=== PATIENT | female | born 1945 | race Caucasian/White ===

== ENCOUNTER 2016-08-24 09:27 | Day surgery (SDC) | payer OTHER ==
[2016-08-24] MEDS ORDERED: FLUMAZENIL 0.5 MG/5 ML MDV IVP ONE (11:08)
[2016-08-24] MEDS ORDERED: MIDAZOLAM 2 MG/2 ML VIAL ONE (11:08)
[2016-08-24] MEDS ORDERED: ONDANSETRON 4 MG/2 ML VIAL ONE (11:09)
[2016-08-24] MEDS ORDERED: HEPARIN 50,000 UNIT/10 ML VIAL ONE (11:49)
[2016-08-24] MEDS ORDERED: fentaNYL 100 MCG/2 ML INJ ONE (11:59)
[2016-08-24] MEDS ORDERED: LIDOCAINE 1% 30 ML SDV ONE (12:05)
[2016-08-24] MEDS ORDERED: IOPAMIDOL (ISOVUE-300) 100 ML BTL IV ONE (12:05)
== END 2016-08-24 13:50 | disposition home or self-care (01) ==
LOC: FIMAGING 09:27
PROVIDERS: ATTEND Internal Medicine Nephrology
PROC: 0JPT33Z Removal of Infusion Device from Trunk Subcutaneous Tissue and Fascia, Percutaneous Approach (ICD-10-PCS; principal; 2016-08-24 12:37)
PROC: 02HV33Z Insertion of Infusion Device into Superior Vena Cava, Percutaneous Approach (ICD-10-PCS; principal; 2016-08-24 12:37)
DX: T82.49XA Other complication of vascular dialysis catheter, initial encounter (principal); T82.868A Thrombosis due to vascular prosthetic devices, implants and grafts, initial encounter; N18.9 Chronic kidney disease, unspecified; Q61.3 Polycystic kidney, unspecified; I12.9 Hypertensive chronic kidney disease with stage 1 through stage 4 chronic kidney disease, or unspecified chronic kidney disease; F17.200 Nicotine dependence, unspecified, uncomplicated; Z99.2 Dependence on renal dialysis
CPT/HCPCS: 36582; 75827; 77001; 99152; C1769; C1894; C1750; J0690; J1644; J2250; J2405; J3010; Q9967

== ENCOUNTER → 2016-09-25 | Outpatient (CLI) | payer OTHER | LOC: FIMAGING 09:43 | PROVIDERS: ATTEND Internal Medicine Nephrology | DX: Z03.89 Encounter for observation for other suspected diseases and conditions ruled out (principal) ==

== ENCOUNTER 2016-09-29 07:38 | Day surgery (SDC) | payer OTHER ==
[2016-09-29] MEDS ORDERED: FLUMAZENIL 0.5 MG/5 ML MDV IVP ONE (08:43)
[2016-09-29] MEDS ORDERED: ONDANSETRON 4 MG/2 ML VIAL ONE (08:43)
[2016-09-29] MEDS ORDERED: fentaNYL 100 MCG/2 ML INJ ONE (08:44)
[2016-09-29] MEDS ORDERED: MIDAZOLAM 2 MG/2 ML VIAL ONE (08:44)
[2016-09-29] MEDS ORDERED: NALOXONE HCL 0.4 MG/ML INJ ONE (08:44)
[2016-09-29] MEDS ORDERED: HEPARIN 50,000 UNIT/10 ML VIAL ONE (09:03)
[2016-09-29] MEDS ORDERED: LIDOCAINE 1% 30 ML SDV ONE (09:03)
== END 2016-09-29 11:54 | disposition home or self-care (01) ==
LOC: FIMAGING 07:38
PROVIDERS: ATTEND Radiology Diagnostic Radiology
PROC: 0WHG33Z Insertion of Infusion Device into Peritoneal Cavity, Percutaneous Approach (ICD-10-PCS; principal; 2016-09-29 10:25)
DX: N18.6 End stage renal disease (principal); I12.0 Hypertensive chronic kidney disease with stage 5 chronic kidney disease or end stage renal disease; F17.210 Nicotine dependence, cigarettes, uncomplicated; Z99.2 Dependence on renal dialysis
CPT/HCPCS: C1750; J1644; J2250; J2310; J2405; J3010

== ENCOUNTER → 2016-10-08 | Day surgery (SDC) | payer OTHER ==
[~2016-10-08] MED LIST: IOPAMIDOL (ISOVUE-300) 100 ML BTL ONE
[2016-10-08 15:54] LABS: % IMMATURE GRANULYOCYTES 0.3 % (0.0-1.1); ABSOLUTE IMMATURE GRANULOCYTES 0.02 10^3/uL (0.00-0.10); ADD DIFF? NO; ADD MORPH? NO; ADD SCAN? NO; ATYPICAL LYMPHOCYTE FLAG 10 (0-99); FRAGMENT RBC FLAG 0 (0-99); HEMATOCRIT 31.8 % (38.0-47.0); HEMOGLOBIN 10.2 g/dL (12.6-16.3); LEFT SHIFT FLG 0 (0-99); LIPEMIA HEMOLYSIS FLAG 80 (0-99); MEAN CELL HEMOGLOBIN 30.2 pg (27.9-34.1); MEAN CELL HEMOGLOBIN CONCENTR. 32.1 g/dL (32.4-36.7); MEAN CELL VOLUME 94.1 fL (81.5-99.8); MEAN PLATELET VOLUME 10.2 fL (8.7-11.7); PLATELET CLUMPS FLAG 0 (0-99); PLATELET COUNT 117 10^3/uL (150-400); RED BLOOD CELL COUNT 3.38 10^6/uL (4.18-5.33); RED CELL DISTRIBUTION WIDTH 13.4 % (11.5-15.2)
[2016-10-08 16:23] LABS: ALANINE AMINOTRANSFERASE 31 IU/L (9-52); ALBUMIN 3.8 g/dL (3.5-5.0); ALKALINE PHOSPHATASE 59 IU/L (38-126); ANION GAP 12 mEq/L (8-16); ASPARTATE AMINOTRANSFERASE 18 IU/L (14-46); BILIRUBIN,TOTAL 0.5 mg/dL (0.1-1.4); CALCIUM 9.3 mg/dL (8.5-10.4); CARBON DIOXIDE 20 mEq/l (22-31); CHLORIDE 104 mEq/L (97-110); CREATININE 5.1 mg/dL (0.6-1.0); GLOMERULAR FILTRATION RATE 8; GLUCOSE 78 mg/dL (70-100); POTASSIUM 4.3 mEq/L (3.5-5.2); SODIUM 136 mEq/L (134-144)
== END | disposition home or self-care (01) ==
LOC: FIMAGING 13:22
PROVIDERS: ATTEND Internal Medicine Nephrology
PROC: 03PYX3Z Removal of Infusion Device from Upper Artery, External Approach (ICD-10-PCS; principal; 2016-10-08)
PROC: B34JZZZ Ultrasonography of Left Upper Extremity Arteries (ICD-10-PCS; principal; 2016-10-08)
PROC: 057C0ZZ Dilation of Left Basilic Vein, Open Approach (ICD-10-PCS; principal; 2016-10-08)
PROC: B544ZZA Ultrasonography of Left Jugular Veins, Guidance (ICD-10-PCS; principal; 2016-10-08)
DX: T82.42XA Displacement of vascular dialysis catheter, initial encounter (principal); N18.5 Chronic kidney disease, stage 5; I12.0 Hypertensive chronic kidney disease with stage 5 chronic kidney disease or end stage renal disease; F17.210 Nicotine dependence, cigarettes, uncomplicated; Q44.6 Cystic disease of liver
CPT/HCPCS: 36815; 36902; 76000; C1769; C1894; C1725; J1644; Q9967

== ENCOUNTER → 2016-12-03 | Day surgery (SDC) | payer OTHER | END | disposition home or self-care (01) | LOC: FIMAGING 07:35 | PROVIDERS: ATTEND Radiology Diagnostic Radiology | PROC: 057C3ZZ Dilation of Left Basilic Vein, Percutaneous Approach (ICD-10-PCS; principal; 2016-12-03) | PROC: B54NZZA Ultrasonography of Left Upper Extremity Veins, Guidance (ICD-10-PCS; principal; 2016-12-03) | PROC: B34JZZ3 Ultrasonography of Left Upper Extremity Arteries, Intravascular (ICD-10-PCS; principal; 2016-12-03) | DX: T82.858A Stenosis of other vascular prosthetic devices, implants and grafts, initial encounter (principal) | CPT/HCPCS: 36902; C1769; C1894; C1725; J1644; Q9967 ==

== ENCOUNTER → 2017-03-15 | Outpatient (CLI) | payer OTHER | LOC: FIMAGING 10:33 | PROVIDERS: ATTEND Family Medicine | DX: Z12.31 Encounter for screening mammogram for malignant neoplasm of breast (principal); Z12.2 Encounter for screening for malignant neoplasm of respiratory organs | CPT/HCPCS: G0202 ==